=== PATIENT | male | born 1975 | race Two or more races ===

== ENCOUNTER 2025-05-19 09:24 | Outpatient (CLI) | payer OTHER | END 2025-05-19 09:31 | disposition home or self-care (01) | LOC: SONOGRAMA 09:24 | PROVIDERS: ATTEND Acupuncturist | DX: R31.9 Hematuria, unspecified (principal); K76.0 Fatty (change of) liver, not elsewhere classified ==

== ENCOUNTER 2025-05-27 08:20 | Outpatient (CLI) | payer OTHER | END 2025-05-27 08:22 | disposition home or self-care (01) | LOC: TOM 08:20 | PROVIDERS: ATTEND Acupuncturist | DX: R31.0 Gross hematuria (principal) ==